=== PATIENT | male | born 1965 | race African-American/Black ===

== ENCOUNTER 2019-07-04 09:01 | Emergency (ER) | payer MEDICARE, MEDICAID ==
--- NOTE | 2019-07-04 11:17 | ER Document Report ---
ED General - General Chief Complaint: Neck Pain >24hrs old Stated Complaint: LEFT SHOULDER PAIN Time Seen by Provider: 07/04/19 11:15 Primary Care Provider: TERRY HUDSON FNP [NO LOCAL MD] - Follow up as needed CARRIE GUNN MD [EMERITUS] - Follow up in 3-5 days TRAVEL OUTSIDE OF THE [place] IN LAST 30 DAYS: No - HPI Notes: 54 year old male to the ED with C/O progressively worsening left sided neck pain that radiates down to the left arm for the past several weeks. Admits that this is actually a problem he has had for several years but has recently gotten worse. States he was seeing Dr. Gunn and was going to have surgery on his neck in 2016. Denies any recent falls or injuries. Denies fevers, chills, arm weakness. Admits to some slight tinging into the upper left shoulder. Denies CP, SOB, headache, fevers, chills. - Related Data Allergies/Adverse Reactions: Shellfish * [Shellfish] Allergy (Verified 07/04/19 09:37) mouth swells Past Medical History - General Information source: Patient - Social History Smoking Status: Never Smoker Chew tobacco use (# tins/day): No Frequency of alcohol use: None Drug Abuse: None Family History: Reviewed & Not Pertinent Patient has suicidal ideation: No Patient has homicidal ideation: No - Past Medical History Cardiac Medical History: Denies: Hx Coronary Artery Disease, Hx Heart Attack, Hx Hypertension Pulmonary Medical History: Denies: Hx Asthma, Hx Bronchitis, Hx COPD, Hx Pneumonia Neurological Medical History: Denies: Hx Cerebrovascular Accident, Hx Seizures Musculoskeletal Medical History: Denies Hx Arthritis Past Surgical History: Reports: Hx Orthopedic Surgery - Immunizations Hx Diphtheria, Pertussis, Tetanus Vaccination: Yes Review of Systems - Review of Systems Constitutional: denies: Chills, Fever EENT: denies: Ear pain, Throat pain Cardiovascular: denies: Chest pain, Dyspnea, Syncope, Dizziness, Lightheaded Respiratory: denies: Cough, Short of breath Gastrointestinal: denies: Abdominal pain, Diarrhea, Nausea, Vomiting Musculoskeletal: See HPI, Neck pain Skin: No symptoms reported. denies: Rash Hematologic/Lymphatic: No symptoms reported Neurological/Psychological: See HPI, Tingling. denies: Headaches -: Yes All other systems reviewed and negative Physical Exam - Vital signs Vitals: Temp Pulse Resp BP Pulse Ox 97.9 F 58 L 18 122/60 98 07/04/19 09:19 07/04/19 09:19 07/04/19 09:19 07/04/19 09:19 07/04/19 09:19 Interpretation: Normal - General General appearance: Appears well, Alert - HEENT Head: Normocephalic Eyes: Normal Pupils: PERRL Ears: Normal External canal: Normal Tympanic membrane: Normal Sinus: Normal Nasal: Normal Mouth/Lips: Normal Mucous membranes: Normal Pharynx: Normal. No: Potential airway comprom. Neck: Other - there is TTP over the midlien cervical spine with no step off or deformity. There is TTP over the left superior border fo the trapezius. - Respiratory Respiratory status: No respiratory distress Chest status: Nontender Breath sounds: Normal Chest palpation: Normal - Cardiovascular Rhythm: Regular Heart sounds: Normal auscultation Murmur: No - Abdominal Inspection: Normal Distension: No distension Bowel sounds: Normal Tenderness: Nontender Organomegaly: No organomegaly - Back Back: No: Deformity/step-off, CVA tenderness Notes: non tender to palpation of the midline thoracic and lumbar spine with no step off or deformity. negative SLR bilaterally. - Extremities General upper extremity: Normal inspection, Nontender, Normal color, Normal ROM, Normal temperature General lower extremity: Normal inspection, Nontender, Normal color, Normal ROM, Normal temperature, Normal weight bearing - Neurological Neuro grossly intact: Yes Cognition: Normal Orientation: AAOx4 [place] Coma Scale Eye Opening: Spontaneous [place] Coma Scale Verbal: Oriented [place] Coma Scale Motor: Obeys Commands [place] Coma Scale Total: 15 Speech: Normal Cranial nerves: Normal. No: Facial palsy, Forehead sparing, Gaze palsy, Sensory deficit, Tongue deviation Cerebellar coordination: Normal Motor strength normal: LUE, RUE, LLE, RLE Additional motor exam normals: Equal document review attorney. No: Pronator drift, Weakness Sensory: Normal - Psychological Associated symptoms: Normal affect, Normal mood - Skin Skin Temperature: Warm Skin Moisture: Dry Skin Color: Normal Skin irregularity: negative: Rash Course - Re-evaluation Re-evalutation: Cervical Spine X-Ray 07/04/19 11:25 IMPRESSION: Cervical spondylosis without fracture or malalignment. Impression: Cervical spondylosis with cervical radiculopathy. Will discharge home with small amount of pain meds and muscle relaxants. Will have patient follow back up with Dr. Gunn. Patient agrees with the plan. Encouraged to return if worsening symptoms. - Vital Signs Vital signs: Temp Pulse Resp BP Pulse Ox 97.6 F 54 L 16 110/69 100 07/04/19 12:12 07/04/19 12:12 07/04/19 12:12 07/04/19 12:12 07/04/19 12:12 Discharge - Discharge Clinical Impression: Cervical spondylosis, Neck pain, Cervical radiculopathy Condition: Stable Disposition: HOME, SELF-CARE Additional Instructions: FOLLOW UP WITH DR. GUNN WITHOUT FAIL TO HAVE YOUR NECK FURTHER MANAGED, TAKE MEDICINES PRESCRIBED. Prescriptions: Oxycodone HCl/Acetaminophen [Percocet 5-325 mg Tablet] 1 tab PO Q6H PRN #6 tablet PRN Reason: Methocarbamol [Robaxin 500 mg Tablet] 500 mg PO QID PRN #20 tablet PRN Reason: Referrals: TERRY HUDSON FNP [NO LOCAL MD] - Follow up as needed CARRIE GUNN MD [EMERITUS] - Follow up in 3-5 days
--- NOTE | 2019-07-04 12:04 | RADIOLOGY REPORT (SQ) ---
EXAM DESCRIPTION: CERV SP 3 VIEW OR LESS COMPLETED DATE/TIME: 07/04/2019 11:30 am REASON FOR STUDY: neck pain COMPARISON: None. NUMBER OF VIEWS: Three views. TECHNIQUE: AP, lateral and odontoid radiographic images acquired of the cervical spine. LIMITATIONS: None. FINDINGS: MINERALIZATION: Normal. ALIGNMENT: Anatomic. VERTEBRAE: Vertebral bodies of normal height. DISCS: C6-7 disc space narrowing with osteophytes. HARDWARE: None in the spine. SOFT TISSUES: No masses or calcifications. Lung apices clear. OTHER: Facet arthropathy sclerosis and narrowing throughout the upper cervical spine. IMPRESSION: Cervical spondylosis without fracture or malalignment. TECHNICAL DOCUMENTATION: JOB ID: [id number] [employer]- All Rights Reserved Reading location - IP/workstation name: [email or web address]
[2019-07-04 12:12] VITALS: BP 110/69
== END 2019-07-04 12:30 | disposition home or self-care (01) ==
LOC: ER 09:01
DX: M54.12 Radiculopathy, cervical region (principal); M47.9 Spondylosis, unspecified; M54.2 Cervicalgia; M25.512 Pain in left shoulder; M79.602 Pain in left arm; R20.0 Anesthesia of skin
CPT/HCPCS: 72040; 99282

== ENCOUNTER → 2019-09-14 | Outpatient (CLI) | payer MEDICAID, MEDICARE ==
--- NOTE | 2019-09-14 17:14 | RADIOLOGY REPORT (SQ) ---
EXAM DESCRIPTION: MRI LUMBAR SPINE WITHOUT COMPLETED DATE/TIME: 09/14/2019 12:55 pm REASON FOR STUDY: M43.02 SPONDYLOLYSIS, CERVICAL REGION M43.02 SPONDYLOLYSIS, CERVICAL REGION M54.2 CERVICALGIA M54.9 DORSALGIA, UNSPECIFIED COMPARISON: None. TECHNIQUE: Sagittal and Axial imaging includes T1, T2, STIR and gradient echo sequences. Coronal T2/ HASTE imaging. LIMITATIONS: None. FINDINGS: VISUALIZED UPPER ABDOMEN: Limited evaluation. No acute or suspicious findings suggested. SEGMENTATION: No transitional anatomy. The lowest well-developed disc space is labeled L5-S1. ALIGNMENT: Anatomic. VERTEBRAE: Intact. BONE MARROW: Normal. No marrow replacement or reactive changes. DISC SIGNAL: Normal. No significant abnormal signal or loss of height. POSTERIOR ELEMENTS: Generally intact. No pars defect evident. HARDWARE: None in the spine. CORD AND CONUS: Normal in size and signal intensity. Conus at the appropriate level. SOFT TISSUES: No aortic aneurysm seen. No bulky retroperitoneal adenopathy or mass. No paraspinal mas s or fluid. L1-L2: No significant spinal stenosis or exit foraminal stenosis. L2-L3: No significant spinal stenosis or exit foraminal stenosis. L3-L4: No significant spinal stenosis or exit foraminal stenosis. L4-L5: No significant spinal stenosis or exit foraminal stenosis. L5-S1: No significant spinal stenosis or exit foraminal stenosis. LOWER THORACIC: Incompletely imaged. No stenosis seen. SACRUM: Visualized upper sacrum intact. OTHER: No other significant findings. IMPRESSION: NORMAL MRI LUMBAR SPINE. TECHNICAL DOCUMENTATION: JOB ID: [id number] 2010 [employer]- All Rights Reserved Reading location - IP/workstation name: [email or web address]
--- NOTE | 2019-09-14 17:19 | RADIOLOGY REPORT (SQ) ---
EXAM DESCRIPTION: MRI CERVICAL SPINE WITHOUT COMPLETED DATE/TIME: 09/14/2019 12:55 pm REASON FOR STUDY: M54.2 CERVICALGIA M43.02 SPONDYLOLYSIS, CERVICAL REGION M54.2 CERVICALGIA M54.9 DORSALGIA, UNSPECIFIED COMPARISON: None. TECHNIQUE: Sagittal and Axial imaging includes T1, T2, STIR and gradient echo sequences. LIMITATIONS: None. FINDINGS: ALIGNMENT: Normal. VERTEBRAE: Intact. BONE MARROW: Normal. No marrow replacement or reactive changes. DISCS: Normal. No significant abnormal signal or loss of height. HARDWARE: None in the spine. CORD AND BASE OF BRAIN: Normal in size and signal intensity. SOFT TISSUES: No soft tissue masses. C1-C2: No significant spinal stenosis. C2-C3: No significant spinal stenosis or exit foraminal stenosis. C3-C4: Small central disc protrusion. Minimal impingement of the cord. No significant spinal stenos is or exit foraminal stenosis. C4-C5: No significant spinal stenosis or exit foraminal stenosis. C5-C6: No significant spinal stenosis or exit foraminal stenosis. C6-C7: Posterior disc and osteophyte. Uncovertebral spurring. Borderline central spinal stenosis. Moderate exit foraminal stenosis. C7-T1: No significant spinal stenosis or exit foraminal stenosis. UPPER THORACIC: Incompletely imaged. No significant spinal stenosis or exit foraminal stenosis. OTHER: No other significant finding. IMPRESSION: SMALL CENTRAL DISC PROTRUSION AT C3-C4 WITH MINIMAL IMPINGEMENT OF THE CORD. POSTERIOR DISC AND OSTEOPHYTE AND UNCOVERTEBRAL SPURRING AT C6-C7 WITH BORDERLINE SPINAL STENOSIS AND MODERATE EXIT FORAMINAL STENOSIS. TECHNICAL DOCUMENTATION: JOB ID: [id number] 2010 [employer]- All Rights Reserved Reading location - IP/workstation name: [email or web address]
== END ==
LOC: RAD 11:42
PROVIDERS: ATTEND Nurse Practitioner Family
DX: M47.892 Other spondylosis, cervical region (principal); M43.02 Spondylolysis, cervical region; M54.2 Cervicalgia; M54.9 Dorsalgia, unspecified; M54.16 Radiculopathy, lumbar region
CPT/HCPCS: 72141; 72148

== ENCOUNTER → 2020-03-29 | Outpatient (CLI) | payer MEDICARE, MEDICAID ==
--- NOTE | 2020-03-29 16:26 | RADIOLOGY REPORT (SQ) ---
EXAM DESCRIPTION: L SPINE WHOLE IMAGES COMPLETED DATE/TIME: 03/29/2020 3:40 pm REASON FOR STUDY: M54.5 CHRONIC LOW BACK PAIN M54.5 LOW BACK PAIN M25.551 PAIN IN RIGHT HIP COMPARISON: MRI of the lumbar spine without contrast from 09/14/2019. NUMBER OF VIEWS: Five views including obliques. TECHNIQUE: AP, lateral, oblique, and sacral radiographic images acquired of the lumbar spine. LIMITATIONS: None. FINDINGS: MINERALIZATION: Normal. SEGMENTATION: There are 5 lumbar-type vertebral bodies. There is no transitional segment at the lumb osacral junction. ALIGNMENT: Normal. VERTEBRAE: The lumbar vertebral body heights are preserved. There is no fracture. DISCS: The intervertebral disc spaces are preserved. POSTERIOR ELEMENTS: Intact. There is no pars interarticularis defect. HARDWARE: None in the spine. PARASPINAL SOFT TISSUES: Normal. PELVIS: Intact. OTHER: No other finding. IMPRESSION: No acute fracture or malalignment of the lumbar spine. TECHNICAL DOCUMENTATION: JOB ID: [id number] 2010 [employer]- All Rights Reserved Reading location - IP/workstation name: [email or web address]
--- NOTE | 2020-03-29 16:31 | RADIOLOGY REPORT (SQ) ---
EXAM DESCRIPTION: HIP BILATERAL IMAGES COMPLETED DATE/TIME: 03/29/2020 3:40 pm REASON FOR STUDY: M25.551 PAIN IN RIGHT HIP M54.5 LOW BACK PAIN M25.551 PAIN IN RIGHT HIP COMPARISON: None. NUMBER OF VIEWS: Three views. TECHNIQUE: An AP view of the pelvis and lateral frogleg views of the hips were obtained. LIMITATIONS: None. FINDINGS: MINERALIZATION: Normal. PRIMARY HIP: No fracture or dislocation. No joint space narrowing. OPPOSITE HIP: No fracture or dislocation. No joint space narrowing. PUBIS AND ISCHIUM: The ilioischial and iliopectineal lines are intact. There is no diastasis of the pubic symphysis. PELVIS: No fracture. SACRUM: Intact. LOWER LUMBAR SPINE: No fracture or dislocation. SOFT TISSUES: No findings. OTHER: No other finding. IMPRESSION: No acute osseous abnormality of the pelvis and hips. TECHNICAL DOCUMENTATION: JOB ID: [id number] 2010 [employer]- All Rights Reserved Reading location - IP/workstation name: [email or web address]
== END ==
LOC: RAD 13:54
PROVIDERS: ATTEND Nurse Practitioner Family
DX: M25.551 Pain in right hip (principal); M54.5 Low back pain
CPT/HCPCS: 72110; 73522